=== PATIENT | female | born 1960 | race Caucasian/White ===

== ENCOUNTER 2016-11-23 05:30 | Day surgery (SDC) | payer BC ==
[2016-11-22 11:57] LABS: HEMATOCRIT 41.2 % (36.0-48.0); HEMOGLOBIN 14.3 g/dL (12-16); MCH 32.2 pg (26.0-34.0); MCHC 34.7 g/dL (31.0-37.0); MCV 92.8 fL (80.0-100.0); MEAN PLATELET VOLUME 11.8 fL (7.4-10.4); RBC 4.44 10x6/uL (4.00-5.40); RDW 13.5 % (11.5-14.5)
[~2016-11-23] VITALS: Ht 152.4 cm; Wt 51.7 kg
--- NOTE | ~2016-11-23 | OP ---
PATIENT NAME: VANESSA ST MEDICAL RECORD: [id number] :56 LOCATION:[facility] ADMISSION DATE: SURGEON: HERMILO ERICKSON DO DATE OF OPERATION: 11/23/2016 SURGEON: Hermilo Erickson DO. ASSISTANTS: None. PROCEDURE PERFORMED: Right endoscopic carpal tunnel release. PREOPERATIVE DIAGNOSIS: Right carpal tunnel syndrome. POSTOPERATIVE DIAGNOSIS: Right carpal tunnel syndrome. INDICATIONS: Ms. St is a 56-year-old female that has had carpal tunnel symptoms including first 3 finger numbness for quite some time. It wakes her up at night and she is tired of dealing with it and any time she talks on the phone or goes to drive, her hand goes numb. She has also noticed some weakness in the hand and has had some thenar eminence atrophy and she has had an EMG nerve conduction study prior that showed severe carpal tunnel. This is approximately a year or 2 ago and she chose to wait and she is now ready to do the surgery. She was informed of the risks and benefits of procedure and consented to the said procedure above. DESCRIPTION OF PROCEDURE: The patient was given a block by anesthesia in PACU, taken to the operative suite and placed in supine position on the table in position. A timeout was then performed. All parties were in agreement with the procedure, that it was a right carpal tunnel that we are releasing endoscopically. The site was marked. The incision was marked out. An Esmarch was then used to exsanguinate the extremity and the tourniquet was inflated. Skin incision was then made at the wrist crease approximately 1 cm in length. Ragnell blunt dissection was then made down to the median nerve, it was visualized. The forearm fascia was then released proximally just over the median nerve under direct visualization. At that time, the dilator was placed into the carpal tunnel. Sounding of the hook of the hamate as well as rasping on the transverse carpal ligament. The dilator was dilated up and the canal was measured approximately 2.5 cm in length. The guide sheath was then placed into the carpal tunnel and the camera was entered into the sheath and visualized the transverse carpal ligament directly. A probe was then used to probe the transverse carpal ligament indicating there is nothing in the way. A rasp was then used to clean it as to get better visualization of it and then the blade was inserted at the distal aspect of the transcarpal ligament and pulled proximally and was followed with direct visualization with the camera. A good release was seen and muscle belly was seen in both the 2 sides of the transverse carpal ligament and fat had herniated into the cut indicating release. The sheath and camera and knife blade were then removed and a scissors was used to release the very proximal portion that had not been released by the blade at the incision site. The whole transverse carpal ligament was then visualized by placing the large end of the Ragnell retractor and seeing that the ligament was transected completely. The patient was then awakened. Tourniquet was put down at 21 minutes and after 4 mL of 0.5% Marcaine with 1% epinephrine was injected into the site. Tourniquet was put down. There is no bleeding and the wound was closed with #2 inverted interrupted sutures using 5-0 Monocryl. A Steri-Strip was placed over the site and Adaptic and 4 x 4, Bjorn and Nicolle was loosely OPERATIVE REPORT [id number] VANESSA ST placed over the right hand and she was awakened and taken to recovery in stable condition. Blood loss was very minimal. TRANSINT:[id number] Voice Confirmation ID: [id number] DOCUMENT ID: [id number] HERMILO ERICKSON DO CC: [id number] DICTATION DATE: 11/23/16849 WILLOW MACHINE OPERATOR: 11/23/16 1117 [facility] 11/23/16 [facility] [address] [place] [address]
[2016-11-23 06:43] VITALS: BP 146/50; Ht 152.4 cm; Wt 51.7 kg
[2016-11-23] MEDS ORDERED: TYLENOL W/CODEI1 TAB PO (08:41)
[2016-11-23] MEDS ORDERED: DURICEF500 MG PO (08:42)
--- NOTE | 2016-11-23 09:59 | NUR ---
0905 PT RETURNED FROM RADIOLOGY. SEE FREQUENT VITAL SIGN CHECKLIST SHEET.
--- NOTE | 2016-11-23 10:25 | NUR ---
1020 DISCHARGE INSTRUCTIONS COMPLETE. PRESCRIPTIONS GIVEN. ESCORTED OUT BY VOLUNTEER.
== END 2016-11-23 10:20 | disposition home or self-care (01) ==
LOC: D.OPS 05:30 → D.PAN 07:30 → D.OPS 07:30
PROVIDERS: Anesthesiology
DX: G56.03 Carpal tunnel syndrome, bilateral upper limbs (principal); F17.200 Nicotine dependence, unspecified, uncomplicated; Z01.812 Encounter for preprocedural laboratory examination

== ENCOUNTER → 2018-02-13 16:48 | Outpatient (CLI) | payer BC ==
[2016-11-23 06:43] VITALS: BMI 22.3
[~2018-02-13 16:48] MED LIST: DURICEF500 MG PO; TYLENOL W/CODEI1 TAB PO
== END | disposition home or self-care (01) ==
LOC: D.MAMMO 14:30
DX: R92.8 Other abnormal and inconclusive findings on diagnostic imaging of breast (principal)

== ENCOUNTER 2019-02-18 08:35 | Outpatient (CLI) | payer BC ==
[~2019-02-18] VITALS: Ht 152.4 cm; Wt 45.9 kg
--- NOTE | ~2019-02-18 | HEMODYNAMI ---
PATIENT:VANESSA CARTAGENA MEDICAL RECORD: [id number] : 56 LOCATION:[facility] ADMISSION DATE: 02/18/19 Generatedon:02/18/201911:00 Patient name: VANESSA CARTAGENA Patient #: [id number] SSN: [id number] : 1960 Date of study: 02/18/2019 Page: Of Hemodynamic Procedure Report Patient Data Patient Demographics Procedure consent was obtained First Name: VANESSA Gender: Female Last Name: OSIEL : 1960 Middle Initial: BRAYAN Age: 59 year(s) Patient #: [id number] Race: Unknown SSN: [id number] Additional ID: [id number] Contact details Address: [place] [address] State: [place] City: [place] Zip code: [address] Past Medical History Allergies Allergen Reaction Date Comments Reported Other allergy 02/18/2019 hydrocodone Admission Admission Data Admission Date: 02/18/2019 Admission Time: 8:35 Arrival Date: 02/18/2019 Arrival Time: 0:00 Admit Source: Other Insurance Payor: Private health insurance [facility] #: [id number] Height (in.): 59.84 BSA: 1.38 (m2) Height (cm.): 152 BMI: 19.48 (kg/m2) Weight (lbs.): 99.21 Weight (kg.): 45 Lab Results Lab Result Date: 02/18/2019 Lab Result Time: 0:00 Biochemistry Name Units Result Min Max BUN mg/dl 9 --(*---)-- 7 18 Creatinine mg/dl 0.7 --(*---)-- 0.6 1.3 eGFR ml/min 90 --(*---)-- 90 120 NONAFRICAN CBC Name Units Result Min Max Hemoglobin g/dl 14.3 --(*---)-- 13.5 17.5 Procedure Procedure Types Cath Procedure Diagnostic Procedure LHC LHC w/Coronaries Procedure Description Procedure Date Procedure Date: 02/18/2019 Procedure Start Time: 10:51 Procedure End Time: 10:59 Procedure Staff Name Function Sridhar Galloway MD Performing Physician Zaida Strange RT Monitor Micky Moses RN Nurse Rylie Balbuena RT Scrub Procedure Data Cath Procedure Fluoroscopy Diagnostic fluoroscopy Total fluoroscopy Time: 1.1 time: 1.1 min min Diagnostic fluoroscopy Total fluoroscopy dose: 132 dose: 132 mGy mGy Contrast Material Contrast Material Type Amount (ml) Isovue 300 44 Entry Location Entry Primary Successful Side Size Upsize Upsize Entry Closure Succes sful Closure Location (Fr) 1 (Fr) 2 (Fr) Remarks Device Remarks Femoral Left 5 Fr Exoseal artery Estimated blood loss: 5 ml Diagnostic catheters Device Type Used For End Catheter Placement MULTIPACK Pigtail 5 Fr Ventriculography catheter MULTIPACK JL 4.0 5Fr Procedure catheter DIAGNOSTIC JL 3.5 5Fr Procedure catheter ([id number]) MULTIPACK 3DRC 5Fr Procedure catheter Procedure Complications No complications Procedure Medications Medication Administration Route Dosage Oxygen etCO2 Nasal cannula 2 l/min Lidocaine 2% added to field 20 Heparin Flush Bag added to field 2 bags (1000units/500ml NS) 0.9% NaCl I.V. 100 ml/hr Versed I.V. 1 mg Fentanyl I.V. 50 mcg Zofran I.V. 4 mg Versed I.V. 1 mg Fentanyl I.V. 50 mcg Hemodynamics Rest BSA: 1.38 (m2) HGB: 14.3 (g/dl) O2 Consumption: Estimated: 131.44 (ml/min) O2 Co nsumption indexed: Estimated:95.25 (ml/min/m) Heart Rate: 72 (bpm) Snapshots Pre Cath Intra NCS Post Cath Vital Signs Time Heart Resp SPO2 etCO2 NIBP (mmHg) Rhythm Pain Sedation Rate (ipm) (%) (mmHg) Status Level (bpm) 10:36:19 59 12 98 25.4 163/85(103) NSR 0 (11) 10(A) , No pain 10:41:18 62 15 100 20.9 Measuring NSR 0 (11) 10(A) , No pain 10:41:34 64 27 100 29.9 176/99(134) NSR 0 (11) 10(A) , No pain 10:45:54 72 13 99 39.6 158/81(109) NSR 0 (11) 10(A) , No pain 10:50:06 73 18 96 30.7 143/85(112) NSR 0 (11) 10(A) , No pain 10:54:18 73 16 96 44.9 137/72(88) NSR 0 (11) 9(A) , No pain 10:58:26 73 16 96 48.6 147/75(114) NSR 0 (11) 10(A) , No pain Medications Time Medication Route Dose Verified Delivered Reason Notes Effectiveness by by 10:38:59 Oxygen etCO2 2 Sridhar Buffie used for Nasal l/min Laverne Moses RN procedure cannula 10:39:31 Lidocaine 2% added 20ml Sridhar Sridhar for local to vial Laverne Galloway MD anesthetic field 10:39:39 Heparin Flush added 2 Sridhar Sridhar used for Bag to bags Laverne Galloway MD procedure (1000units/500ml field NS) 10:39:47 0.9% NaCl I.V. 100 Sridhar Buffie Per ml/hr Laverne Moses RN physician 10:42:40 Zofran I.V. 4 mg Sridhar Simpsonie Per pt vomits Laverne Moses RN physician with hydrocodone and similar medications. 10:50:00 Versed I.V. 1 mg Sridharteri Simpsonie for Laverne Moses RN sedation 10:50:06 Fentanyl I.V. 50 Sridhar Buffie for mcg Laverne Moses RN sedation 10:54:28 Versed I.V. 1 mg Sridharteri Weeks for Laverne Moses RN sedation 10:54:32 Fentanyl I.V. 50 Sridhar Simpsonie for mcg Laverne Moses RN sedation Procedure Log Time Note 10:25:51 Admit Source: Other 10:25:54 Arrival Date: 02/18/2019 12:00:00 AM 10:26:18 Insurance Payor : Private health insurance 10:26:25 Patient Height : 59.84 inches 10:26:29 Patient Weight : 99.21 lbs 10:27:20 Lab Result : Creatinine 0.7 mg/dl 10:27:20 Lab Result : BUN 9 mg/dl 10:27:20 Lab Result : Hemoglobin 14.3 g/dl 10:27:20 Lab Result : eGFR NONAFRICAN 90 ml/min 10:27:25 Diagnostic Cath Status : Elective 10:27:51 Procedure Status Elective Heart Cath (OP). 10:27:55 Rylie Sree RT(R) sent for patient. Start room use. 10:27:56 Time tracking: Regular hours (M-F 7:00 - 5:00) 10:28:01 Plan of Care:Hemodynamics will remain stable., Cardiac rhythm will remain stable., Comfort level will be maintained., Respiratory function will remain adequate., Patient/ family verbilizes understanding of procedure., Procedure tolerated without complication., Recovers from procedure without complications.. 10:32:25 Patient received from Pre/Post Procedure Room to CCL 2 Alert and oriented. Tansferred to table in Supine position. 10:32:28 Signed procedure consent form obtained from patient. 10:32:29 Warm blankets applied, and arianna hugger turned on for patient comfort. 10:32:30 Correct patient and procedure confirmed by team. 10:32:31 ECG and BP/O2 sat monitors applied to patient. 10:32:48 H&P Date Dictated: 02/12/2019 Within 30 days and on chart., H&P Addendum completed by physician on day of procedure. (MUST COMPLETE FOR ALL OUTPATIENTS). 10:32:49 Pre-procedure instructions explained to patient. 10:32:52 Family in waiting room. 10:32:54 Patient NPO since Midnight. 10:33:13 Patient allergic to Other allergyhydrocodone 10:33:17 Is the patient allergic to Iodine/contrast media? No. 10:33:19 Is patient on blood thinner?No 10:33:25 Patient diabetic? No. 10:33:30 Snore? No 10:33:31 Sleep apnea? No 10:33:37 Patient pain scale 0/10 ?. 10:33:49 IV patent on arrival in left forearm with 0.9% NaCl at KVO. 10:33:53 Lab results completed and on chart. 10:34:48 Stress Test: yes; abnormal reversible ischemia laterally and apically 10:34:57 Risk of Mortality: .3 10:34:59 Risk of blood transfusion: .3 10:35:01 Risk of TALISHA: .3 10:35:05 Right groin area was prepped with chlora-prep and draped in sterile fashion 10:35:06 Alarms reviewed by Angelique La 10:35:07 Sharps counted by scrub and verified by R.N. 10:35:08 Physician paged 10:35:13 Vital chart was started 10:35:19 Baseline sample Acquired. 10:35:22 Full Disclosure recording started 10:38:59 Oxygen 2 l/min etCO2 Nasal cannula was administered by Micky Moses RN; used for procedure; Verbal order read back and verified. 10:39:31 Lidocaine 2% 20ml vial added to field was administered by Sridhar Galloway MD; for local anesthetic; Verbal order read back and verified. 10:39:39 Heparin Flush Bag (1000units/500ml NS) 2 bags added to field was administered by Sridhar Galloway MD; used for procedure; Verbal order read back and verified. 10:39:47 0.9% NaCl 100 ml/hr I.V. was administered by Micky Moses RN; Per physician; Verbal order read back and verified. 10:42:40 Zofran 4 mg I.V. was administered by Micky Moses RN; Per physician; pt vomits with hydrocodone and similar medications. Verbal order read back and verified. 10:48:46 Baseline sample Acquired. 10:48:56 1) 90+ Normal kidney functon but urine findings or structural abnormalities or genetic trait point to kidney disease. 10:49:00 Maximum allowable contrast dose (3.7 X eGFR X 0.75)149 ml. 10:49:03 Physician arrived 10:49:03 --------ALL STOP TIME OUT------ 10:49:16 Final Timeout: patient, procedure, and site verified with staff and physician. All members of the team are in agreement. 10:49:19 Left groin site verified by team. 10:49:24 Fire Safety Assessment: A--An alcohol-based skin anteseptic being used preoperatively., C--Open oxygen or nitrous oxide is being used., D--An ESU, laser, or fiber-optic light is being used. 10:49:29 Physical assessment completed. ASA score P 3 - A patient with severe systemic disease as per Sridhar Galloway MD. 10:49:34 Sedation plan: IV Moderate Sedation Medication:Versed, Fentanyl 10:49:38 Use device set Femoral Dx 10:49:39 ACIST Syringe (93273) opened to sterile field. 10:49:40 Bag Decanter (2002S) opened to sterile field. 10:49:40 Medline Cath Pack ([id number]) opened to sterile field. 10:49:41 ACIST Hand Control (08935) opened to sterile field. 10:49:42 ACIST Manifold (04780) opened to sterile field. 10:49:44 DIAGNOSTIC Multipack 5Fr catheter set (JK8351) opened to sterile field. 10:49:44 Tegaderm 4 x 4 (1626W) opened to sterile field. 10:49:47 SHEATH 5FR [place] (HXV435) opened to sterile field. 10:49:48 EMERALD Guide Wire (719-672) opened to sterile field. 10:49:55 Zero performed for pressure channel P1 10:50:00 Versed 1 mg I.V. was administered by Micky Moses RN; for sedation; Verbal order read back and verified. 10:50:06 Fentanyl 50 mcg I.V. was administered by Micky Moses RN; for sedation; Verbal order read back and verified. 10:51:37 Procedure started. 10:51:54 Local anesthetic to left femerol artery with Lidocaine 2% by Sridhar Galloway MD.INITIAL ACCESS ONLY 10:52:58 A 5 Fr sheath was inserted into the Left Femoral artery 10:53:13 A MULTIPACK Pigtail 5 Fr catheter was advanced over the wire and used for Ventriculography. 10:53:15 LV angiography performed. 10:53:27 EF : 40 % 10:53:28 Catheter removed. 10:53:39 A MULTIPACK JL 4.0 5Fr catheter was advanced over the wire and used for Procedure. 10:53:42 LCA angiography performed. 10:54:28 Versed 1 mg I.V. was administered by Micky Moses RN; for sedation; Verbal order read back and verified. 10:54:29 Catheter removed. 10:54:32 Fentanyl 50 mcg I.V. was administered by Mikcy Moses RN; for sedation; Verbal order read back and verified. 10:55:24 A DIAGNOSTIC JL 3.5 5Fr catheter ([id number]) was advanced over the wire and used for Procedure. 10:55:52 LCA angiography performed. 10:55:54 Catheter removed. 10:56:05 A MULTIPACK 3DRC 5Fr catheter was advanced over the wire and used for Procedure. 10:56:12 RCA angiography performed. 10:56:23 ACCDominant side:Left 10:56:35 Catheter removed. 10:56:43 Sheath removed intact; hemostasis achieved with Exoseal to the Left Femoral artery. 10:56:48 EXOSEAL 5Fr (EX500) opened to sterile field. 10:56:56 Procedure ended.(Physican Out) 10:57:08 Fluoroscopy time 01.10 minutes. 10:57:12 Fluoroscopy dose: 132 mGy 10:57:12 Flurop Dose total: 132 10:57:19 Dose Area Product 7272 mGy/cm. 10:57:27 Contrast amount:Isovue 300 44ml. 10:57:30 Maximum allowable dose exceeded? No. 10:57:31 Sharps counted by scrub and verified by R.N. 10:57:34 Insertion/operative site no bleeding no hematoma. 10:57:38 Post-op/insertion site Left Femoral artery dressed using a 4 x 4 and Tegaderm. 10:57:43 Post left femerol artery:stable 10:57:45 Post Procedure Pulses reassessed and unchanged 10:57:51 Post-procedure physical assessment completed. ASA score P 2 - A patient with mild systemic disease as per Sridhar Galloway MD. 10:57:55 Post procedure rhythm: unchanged. 10:57:59 Estimated blood loss: 5 ml 10:58:01 Post procedure instruction explained to patient.Patient verbalizes understanding. 10:58:14 Procedure and supply charges have been captured, reviewed, submitted and are correct. 10:58:40 Procedure Complication : No complications 10:58:42 Vital chart was stopped 10:58:45 [facility] Findings: mild to moderate CAD (<70%) 10:58:47 Operative report dictated upon procedure completion. 10:58:51 See physician's report for complete and final results. 10:58:54 Report given to Pre/Post Procedure Room. 10:58:57 Patient transfered to Pre/Post Procedure Room with Stretcher. 10:58:59 Procedure ended. 10:58:59 Full Disclosure recording stopped 10:59:08 End room use (Document Last) 10:59:27 End room use (Document Last) 11:00:06 End room use (Document Last) Device Usage Item Name Manufacture Quantity Catalog Hospital Part Current Minimal L ot# / Number Charge Number Stock Stock Serial# Code ACIST Acist 1 08867 699063 123812 845189 20 Syringe Medical (07398) Systems Inc Bag Microtek 1 2001S 059889 10418 508353 5 Decanter Medical Inc. () Medline Medline 1 [id number] 065880 25120 112387 5 Cath Pack ([id number]) ACIST Hand Acist 1 67324 812224 234474 456849 5 Control Medical (75082) Systems Inc ACIST Acist 1 87539 370768 424622 011520 5 Manifold Medical (07369) Systems Inc DIAGNOSTIC Cardinal 1 [id number] 253387 86330 643390 30 Multipack Health 5Fr catheter set (JV3450) Tegaderm 4 3M 1 1626W 744709 485057 440005 5 x 4 (1626W) SHEATH 5FR Terumo 1 GRP940 041711 909920 406101 5 [place] (QNE090) EMERALD Cardinal 1 502-455 396940 451863 017513 5 Guide Wire Health (502-455) MULTIPACK Cardinal 1 755227 5 Pigtail 5 Health Fr catheter MULTIPACK Cardinal 1 180798 5 JL 4.0 5Fr Health catheter DIAGNOSTIC Cardinal 1 [id number] 211318 349003 749582 5 JL 3.5 5Fr Health catheter (924460V) MULTIPACK Cardinal 1 014615 5 3DRC 5Fr Health catheter EXOSEAL 5Fr Cardinal 1 EX500 814678 795086 820413 10 (EX500) Health Signature Audit [place] Stage Time Signature Unsigned Intra-Procedure 02/18/2019 Zaida Strange 10:59:27 AM RT(R) Intra-Procedure 02/18/2019 Micky Moses RN 11:00:06 AM Intra-Procedure 02/18/2019 Sridhar Galloway 11:00:31 AM Signatures Performing Physician : Signature : Sridhar Galloway MD Date : Time : Monitor : Zaida Strange Signature : RT Date : Time : Nurse : Buffie Moses RN Signature : Date : Time : [address] [place] [address]
[2019-02-18] MEDS ORDERED: MYRBETRIQ25 MG PO (08:51)
[2019-02-18] MEDS ORDERED: OXYBUTYNIN CHLOR5 MG PO (08:52)
[2019-02-18 09:02] VITALS: BP 148/59; Ht 152.4 cm; Wt 45.9 kg
[2019-02-18 09:24] LABS: BASOPHILS 0.4 % (0-2); EOSINOPHILS 1.7 % (0-7); HEMATOCRIT 41.2 % (36.0-48.0); HEMOGLOBIN 14.3 g/dL (12-16); IMMATURE GRANULOCYTES 0.2 % (0-5); LYMPHOCYTES 30.3 % (15-50); MCH 32.5 pg (26.0-34.0); MCHC 34.7 g/dL (31.0-37.0); MCV 93.6 fL (80.0-100.0); MEAN PLATELET VOLUME 10.7 fL (7.4-10.4); MONOCYTES 9.3 % (2-11); NEUTROPHILS 58.1 % (40-80); PLATELET COUNT 166 10x3/uL (130-400); RDW 14.9 % (11.5-14.5); WBC 4.7 10x3/uL (4.8-10.8)
[2019-02-18 09:44] LABS: ALT (SGPT) 15 U/L (10-68); CALC OSMOLALITY 285 mosm/kg (275-300); CALCIUM 8.9 mg/dL (8.5-10.1); CARBON DIOXIDE 28.4 mmol/L (21.0-32.0); CHLORIDE - SERUM 107 mmol/L (98-107); CHOL - HDL RATIO 4.8 ratio (2.3-4.1); CHOLESTEROL, TOTAL 222 mg/dL (0-200); CREATININE - SERUM 0.7 mg/dL (0.6-1.3); GLUCOSE 102 mg/dL (74-106); HDL CHOLESTEROL 46 mg/dL (32-96); LDL CHOLESTEROL 154 mg/dL (0-100); LDL-HDL RATIO 3.3 ratio (1.5-3.5); POTASSIUM - SERUM 3.9 mmol/L (3.5-5.1); SODIUM 144 mmol/L (136-145); TRIGLYCERIDE 112 mg/dL (30-200); UREA NITROGEN 9 mg/dL (7-18); eGFR NON AFRICAN AMERICAN 90 mL/min (90-120)
--- NOTE | 2019-02-18 11:30 | NUR ---
PATIENT INTERMITTENTLY RESTING, PHYSICIAN AT BEDSIDE TO UPDATE PATIENT AND FAMILY. VSS ON 2L NC. GROIN DRESSING IS CDI, NO S/S OF BLEEDING OR HEMATOMA. NO C/O PAIN,NUMBNESS, OR TINGLING.
[2019-02-18] MEDS ORDERED: LISINOPRIL10 MG PO (11:57)
--- NOTE | 2019-02-18 12:00 | NUR ---
HEAD OF BED ELEVATED TO 45 DEGREES. LEFT GROIN DRESSING IS CDI, NO S/S OF BLEEDING OR HEMATOMA. NO C/O PAIN,NUMBNESS, OR TINGLING. FAMILY PRESENT AT BEDSIDE. VSS ON ROOM AIR. PATIENT GIVEN CRACKERS AND WATER PER REQUEST. NO N/V.
--- NOTE | 2019-02-18 12:30 | NUR ---
LEFT GROIN DRESSING C/D/I. NO S/S OF HEMATOMA NOTED. PIV D/C'D WITH CATH TIP INTACT. PT TOLERATED WELL. INSTRUCTED TO GET UP AND DRESSED. FAMLY AT BEDSIDE TO ASSIST.
--- NOTE | 2019-02-18 12:45 | NUR ---
DISCUSSED DISCHARGE INSTRUCTIONS WITH PT AND PT'S FAMILY. THEY VOICED UNDERSTANDING. PT TO RESTROOM. VOIDED WITHOUT DIFFICULTY. RIGHT GROIN DRESSING C/D/I. NO S/S OF HEMATOMA NOTED.
--- NOTE | 2019-02-18 12:55 | NUR ---
PT TAKEN OUT TO VEHICLE BY WHEELCHAIR. NO S/S OF DISTRESS NOTED. ALL BELONGINGS AND PAPERWORK IN HAND.
--- NOTE | 2019-02-25 14:07 | OP ---
PATIENT NAME: VANESSA CARTAGENA MEDICAL RECORD: [id number] :56 LOCATION:D.CAT ADMISSION DATE: SURGEON: KINGSLEY PAYNE MD DATE OF OPERATION: 02/18/2019 PROCEDURES: 1. Left heart catheterization. 2. Selective coronary angiography. 3. Left ventriculogram. INDICATION: Angina, shortness of breath, cardiomyopathy. PROCEDURE IN DETAIL: After informed consent was obtained and after a detailed description of risks, benefits as well as alternative therapies, the patient elected to proceed with angiogram and heart catheterization. The right femoral area was prepped and draped in normal sterile fashion. Right femoral artery was cannulated via modified Seldinger technique with placement of 5-Filipino sheath. All catheters exchanged through this sheath. FINDINGS: Left ventriculogram was performed in a standard 30-degree BAY view, revealing global hypokinesis, ejection fraction in the 35-40% range. SELECTIVE CORONARY ANGIOGRAPHY: Left main, left anterior descending, left circumflex, and right coronary artery are all smooth-walled vessels with no angiographic evidence of coronary artery disease. OVERALL IMPRESSION: Nonischemic cardiomyopathy. No coronary artery disease is present. Center medical management on treatment of the cardiomyopathy. TRANSINT:[id number] Voice Confirmation ID: [id number] DOCUMENT ID: [id number] KINGSLEY PAYNE MD at 1407 CC: [id number] DICTATION DATE: 02/18/19 1104 JOURNEYMAN MECHANIC: 02/18/19 1131 DEP CLI 02/18/19 [place] [id number] [place] [id number]
--- NOTE | 2019-02-25 14:07 | EC ---
PATIENT:VANESSA CARTAGENA DATE OF SERVICE: 02/18/19 SEX: F MEDICAL RECORD: [id number] DATE OF : 56 LOCATION:D.CAT AGE OF PATIENT: 59 ADMISSION DATE: 02/18/19 REFERRING PHYSICIAN: INTERPRETING PHYSICIAN: KINGSLEY GALLOWAY MD ECHOCARDIOGRAM REPORT ECHO CHARGES 4 ECHO COMPLETE Date: 02/18/19 CLINICAL DIAGNOSIS: DILATED CARDIOMYOPATHY, ASSESS EF POST CATH ECHOCARDIOGRAPHIC MEASUREMENTS (adult normal given) AC root (d.<3.7cm) 3.1 cm LV Septum d (<1.2 cm> 1.7 cm Valve Excursion 1.3 cm LV Septum (systole) 1.9 cm Left Atria (s.<4.0cm> 3.8 cm LVPW d(<1.2cm) 1.8 cm RV (d.<2.3cm) cm LVPW (sytole) 2.0 cm LV diastole(<5.6CM) 4.6 cm MV E-F(>70mm/sec) cm LV systole 3.3 cm LVOT Diameter cm MV exc.(>10mm) 1.7 cm Est.ejection fraction (50-75%) % DOPPLER: LVIT cm/sec A cm/sec E cm/sec LA cm/sec RVSP mmHg LVOT cm/sec AOP1/2T m/s Asc. Ao cm/sec RVOT cm/sec RA cm/sec PA cm/sec AV Gradient Peak mmHg AV Mean mmHg AV Area cm MV Gradient Peak mmHg MV Mean mmHg MV Area cm COMMENTS: Ceramic Designer: 2 GUILLERMO ARGUELLES Cardiac Specialist: 1 Dr. Galloway TAPE# PACS Pericardial Effusion N DATE OF SERVICE: PROCEDURE: Limited echo. FINDINGS: Left ventricular chamber size is within normal limits. Left ventricular hypertrophy is present, concentric with no evidence of outflow tract hypertrophy. Ejection fraction is lower limits of normal to mildly depressed in the 45% range. TRANSINT:[id number] Voice Confirmation ID: [id number] DOCUMENT ID: [id number] ECHOCARDIOGRAM REPORT [id number] VANESSA CARTAGENA KINGSLEY GALLOWAY MD at 1407 CC: [id number] DICTATION DATE: 02/18/19 1559 MANAGER HEART FAILURE: 02/19/19 0003 DEP CLI 02/18/19 [facility] [address] [place] [address]
== END 2019-02-18 12:55 | disposition home or self-care (01) ==
LOC: D.CATH 08:35
PROVIDERS: ATTEND Internal Medicine Interventional Cardiology
DX: I42.9 Cardiomyopathy, unspecified (principal); R94.30 Abnormal result of cardiovascular function study, unspecified; I20.9 Angina pectoris, unspecified; R06.02 Shortness of breath